=== PATIENT | male | born 1975 | race Two or more races ===

== ENCOUNTER 2023-02-01 02:37 | Emergency (ER) | payer OTHER ==
[~2023-02-01] VITALS: Ht 177.8 cm; Wt 82.1 kg
[2023-02-01] MEDS ORDERED: PHENAGIL TABLE1 EACH PO (05:11)
== END 2023-02-01 05:16 ==
LOC: ER 02:37
DX: F41.8 Other specified anxiety disorders (principal); R09.81 Nasal congestion